=== PATIENT | male | born 1985 | race African-American/Black ===

== ENCOUNTER 2017-02-02 13:23 | Emergency (ER) | payer OTHER ==
[~2017-02-02] VITALS: Ht 172.7 cm; Wt 103.0 kg
[2017-02-02 13:31] VITALS: BP 158/113; PULSE 67; RESP 16; O2SAT 99
[2017-02-02] MEDS ORDERED: Fluorescein 0.6 mg Ophthalmic Strip LEFT_EYE ONE (13:55)
[2017-02-02] MEDS ORDERED: Tetracaine 0.5% 4 mL Ophthalmic Solution BOTH_EYES ONE (13:55)
--- NOTE | 2017-02-02 14:36 | ED.REPORT ---
HPI-Eye Problem Date of Service Feb 02, 2017 ED Provider: Ermias Salazar PA-C Tomy is otherwise healthy 31-year-old male presenting to the emergency department with a chief complaint of a red and painful left eye. First noticed 3 days ago as some irritation in the lateral sclera. Patient reportedly doesn't take a nap and awoke with a red and irritated eyes as been worsening over the last 3 days. Complains of crusting in the morning, constant watering, photophobia, blurred vision, lid swelling. Pain is described as itchy and sharp. Patient reports a similar sensation irritation starting in his right eye at this time. Denies trauma, contact lens use, fevers, chills, cold symptoms, recent sinus infections. Denies history of glaucoma. Seen initially at urgent care and referred to the emergency department. Nursing Notes Stated Complaint: LEFT EYE PAIN/RED/SENT BY Chief Complaint: Eye Nursing Notes Reviewed: Yes Allergies: Coded Allergies: No Known Allergies (Verified Allergy, Unknown, 02/02/17) General Time Seen by MD: 13:41 Chief Complaint Left eye affected Past Medical History Past Medical History Reports: Asthma Past Surgical History denies Smoking History Current Every Day Smoker Social History Alcohol Use: Denies alcohol use Drug Use: Meth Occupation lives with girlfriend Review of Systems Review of Systems Note: Negative unless stated otherwise in history of present illness Physical Exam General: Well appearing, well developed, well nourished, no acute distress. Head: Atraumatic, normocephalic. Left eye: Moderate lid swelling. Significant chemosis, watery discharge. No foreign bodies noted on lid eversion or slit-lamp examination. Anterior chamber is clear. No areas of focal fluorescein uptake under Wood's lamp examination. IOP measured at 27, 27 and 32 mmHg. Visual acuity measured at 20/50. PERRL, EOMI. Direct and consensual photophobia. Right eye: No lid swelling, slight chemosis. No foreign bodies noted on slit lamp examination IOP measured at 19, 22, 22 mmHg. Visual acuity measured at 1/ 25. Anterior chamber clear. PERRL, EOMI. Negative photophobia. ENT: Voice clear, hearing grossly intact. Respiratory: No respiratory distress, no increased work of breathing. Speaks in complete sentences. Skin: Warm and dry. Neurological: Grossly nonfocal. Psychological: alert and oriented. Speech appropriate, linear and logical. Behavior appropriate. Initial Vital Signs Vital Signs (First) Date Time Temp Pulse Resp B/P Pulse Ox O2 Delivery O2 Flow Rate FiO2 02/02/17 13:31 37.0 67 16 158/113 99 Room Air Elevated blood pressure Re-Eval/Medical Decision Med Decision/Clinical Course 31-year-old patient referred from urgent care concern for red and painful left eye. Reports three-day history of worsening itchy, sharp eye pain, watery discharge, crusting in the morning, photophobia, blurred vision, headache. Denies trauma, contact lens use, history glaucoma. Physical examination reveals significant chemosis in the left eye, less severely in the right eye. Visual acuity is reduced on the left. IOP is increased on the left. There is consensual and direct photophobia on the left. Otherwise benign with no areas of focal fluorescein uptake, foreign bodies noted. Anterior chambers are clear. Vital signs are normal. I am reassured against orbital or periorbital cellulitis but remain concerned about glaucoma, iritis. I discussed this case with Dr. Alexander, credit card interviewer, who met with and examined the patient. He is reassured against emergent conditions and believes this is most likely a viral conjunctivitis, stable and safe for discharge. Because Dr. Alexander's clinic does not accept the patient's insurance, he is advised to contact his insurance company to find an credit card interviewer to follow up with in 1 week. Provided emergent return precautions. Patient verbalizes understanding of and consent to the plan. Consultation : Referral / Consult Name: SARA ALEXANDER MD Call Returned at: 14:44 Note: Agrees to see the patient, expected [id number] Discharge & Departure Primary Impression: Conjunctivitis Conjunctivitis type: acute Acute conjunctivitis type: viral Laterality: bilateral Qualified Code: B30.9 - Viral conjunctivitis, unspecified Disposition: Home Discharge Condition All VS Reviewed: Yes Condition: Stable Patient Instructions: Conjunctivitis (ED) Additional Instructions: Evaluation in the emergency Department for eye pain included interview, physical examination and consultation with an credit card interviewer. We are reassured that this is not a dangerous condition is most likely a viral conjunctivitis, commonly called pinkeye. This is quite contagious, you should not go to work and wash your hands very carefully. It should resolve on its own in the next week or so. Cool, moist compresses can be quite helpful for discomfort and itching. The pain is best treated with 600 mg of ibuprofen (Advil, Motrin) every 6 hours , or 1000 mg of acetaminophen (Tylenol) every 6 hours. These drugs can be taken at the same time for more severe pain. Contact your insurance company to find out who in the region is available to be seen for ophthalmological services. Please contact them and arrange to be seen in about a week for follow-up. Return to emergency department for new or worsening symptoms including increasing pain, worsening vision. Referrals: NOPCP (PCP) [facility] EDSupervising Provider for APC: Kamaljit Shirley Seth PA-C Feb 02, 2017 14:36
[2017-02-02 17:17] VITALS: BP 130/77; PULSE 95; RESP 16; O2SAT 96
== END 2017-02-02 17:38 | disposition home or self-care (01) ==
LOC: SED 13:23
DX: B30.9 Viral conjunctivitis, unspecified (principal); J45.909 Unspecified asthma, uncomplicated; F17.200 Nicotine dependence, unspecified, uncomplicated
CPT/HCPCS: 96372; 99283; J1885